=== PATIENT | female | born 1975 | race Caucasian/White ===

== ENCOUNTER 2017-01-23 02:20 | Emergency (ER) | payer MEDICAID, SELFPAY ==
[2017-01-23] MEDS ORDERED: Ketorolac Tromethamine 30 MG/ML VIAL ONE (03:52)
[2017-01-23] MEDS ORDERED: Cyclobenzaprine 10 MG TAB ONE (04:37)
[2017-01-23] MEDS ORDERED: HYDROcodone/Acetaminophen 5/325 mg Tablet ONE (04:37)
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
== END 2017-01-23 05:15 | disposition home or self-care (01) ==
LOC: MADERS 02:20
DX: S39.012A Strain of muscle, fascia and tendon of lower back, initial encounter (principal); S00.93XA Contusion of unspecified part of head, initial encounter; M62.830 Muscle spasm of back; F17.210 Nicotine dependence, cigarettes, uncomplicated; Y04.8XXA Assault by other bodily force, initial encounter
CPT/HCPCS: 70450; 72125; 72128; 72131; 96374; J1885

== ENCOUNTER 2018-06-01 15:16 | Emergency (ER) | payer OTHER ==
[2018-06-01] MEDS ORDERED: HYDROcodone/Acetaminophen 10/325 mg Tablet ONE (15:34)
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
== END 2018-06-01 16:10 | disposition home or self-care (01) ==
LOC: MADERS 15:16
DX: M19.072 Primary osteoarthritis, left ankle and foot (principal); F17.210 Nicotine dependence, cigarettes, uncomplicated; Z79.899 Other long term (current) drug therapy

== ENCOUNTER 2022-03-09 10:33 | Emergency (ER) | payer MEDICAID, OTHER ==
[2022-03-09] MEDS ORDERED: Meclizine HCl 25 MG TAB ONE (11:02)
[2022-03-09] MEDS ORDERED: Azithromycin 500 MG VIAL ONE (11:42)
[2022-03-09] MEDS ORDERED: Sodium Chloride 0.9% 250 ML 250 ML ONE (11:42)
[2022-03-09] MEDS ORDERED: predniSONE 10 MG TAB ONE (11:42)
[2022-03-09] MEDS ORDERED: Furosemide 20 MG/2 ML VIAL ONE (11:42)
[2022-03-09] MEDS ORDERED: predniSONE 20 MG TAB ONE (11:42)
[2022-03-09] MEDS ORDERED: Albuterol 200 PUFF (6.7GM INHALER) ONE (11:44)
[2022-03-09 12:00] LABS: #Basophils 0.1 thou/uL (0.0-0.2); #Eosinphils 0.5 thou/uL (0.0-0.7); #Lymphocytes 2.2 thou/uL (1.20-3.40); #Monocytes 0.6 thou/uL (0.11-0.59); #Neutrophils 4.3 thou/uL (1.40-6.50); %Basophils 1.3 % (0.0-1.0); %Lymphocytes 28.2 % (21.0-51.0); %Monocytes 8.3 % (0.0-10.0); %Neutrophils 56.2 % (42.0-75.0); Hemoglobin 14.3 g/dL (12.0-16.0); Mean Corpuscular HGB CONC 30.9 g/dL (32.0-36.0); Mean Corpuscular Hemoglobin 26.9 pg (27.0-31.0); Mean Corpuscular Volume 86.9 fL (78.0-98.0); Mean Platelet Volume 13.1 fL (7.4-10.4); Platelet Count 172 thou/uL (130-400); RBC Distribution Width 14.4 % (11.5-14.5); Red Blood Cell (RBC) Count 5.32 mill/uL (4.20-5.40); White Blood Cell (WBC) Count 7.6 thou/uL (4.8-10.8)
[2022-03-09] MEDS ORDERED: Azithromycin 250 MG TAB ONE (12:00)
[2022-03-09 12:05] LABS: ALT (SGPT) 30 U/L (8-55); AST (SGOT) 29 U/L (5-34); Albumin 3.8 g/dL (3.5-5.0); Alkaline Phosphatase 81 U/L (40-110); Anion Gap 16 mmol/L (10-20); BUN (Urea Nitrogen) 19 mg/dL (7.0-18.7); Bilirubin, Total 0.6 mg/dL (0.2-1.2); Calc. Creatinine Clearance 0 mL/min (70-130); Calcium 8.9 mg/dL (7.8-10.44); Carbon Dioxide 22 mmol/L (22-29); Chloride 106 mmol/L (98-107); Globulin 2.6 g/dL (2.4-3.5); Glucose 92 mg/dL (70-105); Potassium 4.9 mmol/L (3.5-5.1); Protein, Total 6.4 g/dL (6.0-8.3); Sodium 139 mmol/L (136-145)
[2022-03-09 12:14] LABS: Anisocytosis SLIGHT = 6-15 cells (100X) (0-5/hpf)
[2022-03-09 12:15] LABS: Platelet Morphology Comment Appears Adequate
== END 2022-03-09 13:59 | disposition home or self-care (01) ==
LOC: MADERS 10:33
DX: J44.1 Chronic obstructive pulmonary disease with (acute) exacerbation (principal); I50.9 Heart failure, unspecified; R42 Dizziness and giddiness; R29.701 NIHSS score 1; F17.210 Nicotine dependence, cigarettes, uncomplicated; Z85.3 Personal history of malignant neoplasm of breast; Z85.42 Personal history of malignant neoplasm of other parts of uterus; Z85.828 Personal history of other malignant neoplasm of skin
CPT/HCPCS: 36415; 71045; 80053; 83880; 84484; 85025; 93005; 94760; 96374; J0456; J1940; J7050; J7512

== ENCOUNTER 2022-05-18 10:59 | Emergency (ER) | payer MEDICAID, OTHER ==
[~2022-05-18 10:59] MED LIST: Sodium Chloride 0.9% 500 ML BAG ONE
[2022-05-18] MEDS ORDERED: methylPREDNISolone Sod Succ/PF 125 MG/2 ML VIAL ONE (11:40)
[2022-05-18 12:13] LABS: Band 3 % (5-11); Eosinophils 6 % (0-10); Hemoglobin 15.8 g/dL (12.0-16.0); Large Platelets SLIGHT; Lymphocytes 19 % (21-51); MDiff Complete? YES; Mean Corpuscular HGB CONC 31.3 g/dL (32.0-36.0); Mean Corpuscular Hemoglobin 27.2 pg (27.0-31.0); Monocytes 2 % (0-10); Neutrophil 70 % (42-75); Platelet Count 206 thou/uL (130-400); RBC Distribution Width 13.5 % (11.5-14.5); Red Blood Cell (RBC) Count 5.82 mill/uL (4.20-5.40); White Blood Cell (WBC) Count 12.2 thou/uL (4.8-10.8)
[2022-05-18 12:17] LABS: ALT (SGPT) 26 U/L (8-55); AST (SGOT) 27 U/L (5-34); Albumin 3.9 g/dL (3.5-5.0); Alkaline Phosphatase 83 U/L (40-110); Anion Gap 17 mmol/L (10-20); BUN (Urea Nitrogen) 21 mg/dL (7.0-18.7); Bilirubin, Total 1.3 mg/dL (0.2-1.2); Calc. Creatinine Clearance 0 mL/min (70-130); Calcium 9.1 mg/dL (7.8-10.44); Carbon Dioxide 24 mmol/L (22-29); Chloride 104 mmol/L (98-107); Estimated GFR 52; Globulin 2.8 g/dL (2.4-3.5); Glucose 130 mg/dL (70-105); Magnesium 1.9 mg/dL (1.6-2.6); Potassium 4.5 mmol/L (3.5-5.1); Protein, Total 6.7 g/dL (6.0-8.3); Sodium 140 mmol/L (136-145)
== END 2022-05-18 13:35 | disposition home or self-care (01) ==
LOC: MADERS 10:59
DX: J44.1 Chronic obstructive pulmonary disease with (acute) exacerbation (principal); N17.9 Acute kidney failure, unspecified; I50.9 Heart failure, unspecified; F17.210 Nicotine dependence, cigarettes, uncomplicated
CPT/HCPCS: 36415; 71045; 80053; 83735; 83880; 84484; 85025; 93005; 96374; J2930; J7030; J7620

== ENCOUNTER 2023-01-03 17:22 | Emergency (ER) | payer MEDICAID, OTHER, SELFPAY | END 2023-01-03 18:49 | disposition home or self-care (01) | LOC: MADERS 17:22 | DX: S93.402A Sprain of unspecified ligament of left ankle, initial encounter (principal); S93.602A Unspecified sprain of left foot, initial encounter; J44.9 Chronic obstructive pulmonary disease, unspecified; F17.210 Nicotine dependence, cigarettes, uncomplicated; W19.XXXA Unspecified fall, initial encounter ==

== ENCOUNTER 2023-03-18 09:34 | Emergency (ER) | payer OTHER ==
[2023-03-18 10:17] LABS: #Basophils 0.1 thou/uL (0.0-0.2); #Lymphocytes 1.1 thou/uL (1.20-3.40); #Monocytes 0.8 thou/uL (0.11-0.59); #Neutrophils 10.8 thou/uL (1.40-6.50); %Eosinophils 0.1 % (0.0-10.0); %Lymphocytes 8.7 % (21.0-51.0); %Monocytes 6.2 % (0.0-10.0); Hemoglobin 16.7 g/dL (12.0-16.0); Mean Corpuscular HGB CONC 30.9 g/dL (32.0-36.0); Mean Corpuscular Hemoglobin 28.2 pg (27.0-31.0); Mean Corpuscular Volume 91.5 fl (78.0-98.0); Mean Platelet Volume 11.8 fL (7.4-10.4); Platelet Count 190 10x3/uL (130-400); Red Blood Cell (RBC) Count 5.92 mill/uL (4.20-5.40); White Blood Cell (WBC) Count 12.9 10x3/uL (4.8-10.8)
[2023-03-18 10:21] LABS: INR-International Normal Ratio 1.3; Prothrombin Time 16.6 sec (12.0-14.7)
[2023-03-18 10:28] LABS: ALT (SGPT) 26 U/L (8-55); AST (SGOT) 39 U/L (5-34); Alkaline Phosphatase 147 U/L (40-110); Anion Gap 24 mmol/L (10-20); BUN (Urea Nitrogen) 27 mg/dL (7.0-18.7); Bilirubin, Total 3.6 mg/dL (0.2-1.2); Calc. Creatinine Clearance 0 mL/min (70-130); Calcium 9.9 mg/dL (7.8-10.44); Carbon Dioxide 21 mmol/L (22-29); Chloride 99 mmol/L (98-107); Estimated GFR 39; Globulin 2.9 g/dL (2.4-3.5); Glucose 121 mg/dL (70-105); Potassium 5.5 mmol/L (3.5-5.1); Protein, Total 6.9 g/dL (6.0-8.3); Sodium 138 mmol/L (136-145)
[2023-03-18] MEDS ORDERED: Furosemide 40 MG/4 ML VIAL ONE (11:49)
[2023-03-18] MEDS ORDERED: Nitroglycerin 2% Ointment 1 INCH/1 GM Packet ONE (11:49)
[2023-03-18] MEDS ORDERED: Iopamidol 370 76% 200 ML VIAL ONE (13:07)
[2023-03-18] MEDS ORDERED: Sodium Chloride 0.9% 100 ML BAG ONE (13:07)
== END 2023-03-18 12:35 | disposition short-term general hospital (02) ==
LOC: MADERS 09:34
DX: I50.9 Heart failure, unspecified (principal); E87.5 Hyperkalemia; N17.9 Acute kidney failure, unspecified; J44.9 Chronic obstructive pulmonary disease, unspecified; E66.9 Obesity, unspecified; F17.210 Nicotine dependence, cigarettes, uncomplicated; Z79.899 Other long term (current) drug therapy
CPT/HCPCS: 70450; 70486; 71275; 72125; 80053; 83880; 84484; 85025; 85610; 93005; 96374; J1940

== ENCOUNTER 2023-07-17 10:01 | Outpatient (CLI) | payer OTHER | END 2023-07-17 10:02 | disposition home or self-care (01) | LOC: MADRAD 10:01 | PROVIDERS: ATTEND Internal Medicine | DX: J45.50 Severe persistent asthma, uncomplicated (principal); I51.7 Cardiomegaly; I27.20 Pulmonary hypertension, unspecified | CPT/HCPCS: 71046 ==